=== PATIENT | female | born 1975 | race Caucasian/White ===

== ENCOUNTER → 2020-07-13 12:05 | Outpatient (CLI) | payer BC, SELFPAY ==
--- NOTE | 2020-07-13 12:11 | RAD_ITS ---
STUDY: X-RAY - THORACIC SPINE REASON FOR EXAM: Female, 44 years old. BACK PAIN TECHNIQUE: 2 view(s) of the thoracic spine were obtained. COMPARISON: None. FINDINGS: Normal kyphosis of the thoracic spine. There is no substantial scoliosis. Normal thoracic vertebrae and endplates. Normal disc space heights. The soft tissue structures are unremarkable. RAD/Thoracic Spine 2 Views IMPRESSION: Normal x-ray examination of the thoracic spine. Electronically Signed: Jay Stone MD at 6:38 EDT Tel , Service support ,
--- NOTE | 2020-07-13 12:11 | RAD_ITS ---
STUDY: X-RAY - LUMBAR SPINE REASON FOR EXAM: Female, 44 years old. BACK PAIN TECHNIQUE: 2 view(s) of the lumbar spine were obtained. COMPARISON: None FINDINGS: Normal lumbar lordosis. Mild dextroscoliosis centered at L4. There is a normal alignment of the vertebrae. There is multilevel endplate spondylosis of the lumbar vertebrae. There is multi-level degenerative disc disease with multi-level disc space narrowing. The soft tissue structures are unremarkable. RAD/Lumbar Spine 2 or 3 Views IMPRESSION: Mild dextroscoliosis with diffuse degenerative disc disease. Electronically Signed: Jay Stone MD at 8:39 EDT Tel , Service support ,
--- NOTE | 2020-07-13 12:15 | RAD_ITS ---
STUDY: X-RAY - CERVICAL SPINE REASON FOR EXAM: Female, 44 years old. BACK PAIN TECHNIQUE: 3 view(s) of the cervical spine were obtained. COMPARISON: None FINDINGS: Normal anterior atlantoaxial articulation. Normal odontoid process. There is straightening of the normal cervical lordosis. Normal vertebral bodies and endplates. Normal disc space heights. Normal visualized intervertebral neuroforamina. The soft tissue structures are unremarkable. RAD/Cerv Spine 2 or 3 Views IMPRESSION: There is straightening of the normal cervical lordosis. Electronically Signed: Umesh Ji MD at 15:33 EDT , Service support ,
== END ==
PROVIDERS: Referring Provider Anesthesiology Pain Medicine; Visit Provider Anesthesiology Pain Medicine
DX: M54.9 Dorsalgia, unspecified (principal)
CPT/HCPCS: 72040; 72070; 72100

== ENCOUNTER 2021-04-17 13:25 | Outpatient (CLI) | payer BC, SELFPAY ==
[2021-04-17 14:31] LABS: Amphetamine Urine VISTA NEGATIVE (<1000 ng/mL); Barbiturate Urine VISTA NEGATIVE (< 200 ng/mL); Benzodiazepine Urine VISTA NEGATIVE (< 200 ng/mL); Cocaine Urine VISTA NEGATIVE (< 300 ng/mL); Ecstacy Urine VISTA NEGATIVE (< 500 ng/mL); Methadone Urine VISTA NEGATIVE (< 300 ng/mL); PCP Urine VISTA NEGATIVE (< 25 ng/mL); THC Urine VISTA NEGATIVE (< 50 ng/mL); Vista UDS pH Range 5
== END 2021-04-17 23:59 | disposition short-term general hospital (02) ==
LOC: LAB 13:30
PROVIDERS: PCP Family Medicine; Referring Provider Anesthesiology Pain Medicine; Visit Provider Anesthesiology Pain Medicine
DX: F11.20 Opioid dependence, uncomplicated (principal)
CPT/HCPCS: 80307

== ENCOUNTER 2021-10-03 10:42 | Emergency (ER) | payer BC, SELFPAY ==
[2021-10-03 10:43] VITALS: BP 167/65; PULSE 97; RESP 22; TEMP 36.1; O2SAT 96; BMI 25.1
--- NOTE | 2021-10-03 11:00 | EKG12_ITS ---
Test Reason : Blood Pressure : / mmHG Vent. Rate : 088 BPM Atrial Rate : 088 BPM P-R Int : 122 ms QRS Dur : 086 ms QT Int : 366 ms P-R-T Axes : 053 064 064 degrees QTc Int : 442 ms Normal sinus rhythm Normal ECG Confirmed by FOX RUSSO, AUSTYN ([id number]), telegraph editor ZANA LLAMAS ([id number]) on 10/05/2021 9:31:03 AM Referred By: Confirmed By:AUSTYN BRAXTON MD
--- NOTE | 2021-10-03 11:00 | RAD_ITS ---
STUDY: X-RAY - LEFT FOOT CLINICAL: Female, 45 years old. Injury TECHNIQUE: 3 view(s) of the foot. COMPARISON: None. FINDINGS: There is an enthesophyte involving the posterior superior calcaneus at the site of insertion of the Achilles tendon. Normal visualized subtalar, talonavicular, calcaneocuboid, tarsal and tarsometatarsal articulations. Normal metatarsi. Normal metatarsophalangeal joint of the great toe. Normal tibial and fibular sesamoid bones. Normal interphalangeal joint of the great toe. Normal phalanges of the great toe. Normal second through fifth metatarsophalangeal joints. Normal interphalangeal joints and phalanges of the lesser toes. The soft tissue structures are unremarkable. RAD/Foot min 3 Views IMPRESSION: No acute abnormality is seen. Electronically Signed: Umesh Ji MD at 12:12 EDT ,
--- NOTE | 2021-10-03 11:01 | EX.ED.DYSGE1 ---
HPI History of Present Illness Chief Complaint: Suicidal Informant: patient Narrative Narrative: 45-year-old female presenting to the emergency department stating that she is suicidal. Patient states that she has had a long struggle raising her 17-year-old son. She states that she has been arguing with her . She states that she feels like her mind is broken because she asked him about events that he says did not happen. She states that she is written letters to her family saying that she is sorry. She started to cut her left leg recently which she states that she has not done in the past. She is in pain management for chronic low back pain. She denies any changes in medications. [facility] Medical History Connective tissue disease Diabetes Hypertension Home Medications atorvastatin 10 mg tablet 1 tablet PO DAILY 01/28/21 [History Last Taken Unknown] buprenorphine 10 mcg/hour weekly transdermal patch 1 patch transdermal 01/28/21 [History Last Taken Unknown] cholecalciferol (vitamin D3) 125 mcg (5,000 unit) capsule 125 mcg PO DAILY 01/28/21 [History Last Taken Unknown] gabapentin 300 mg capsule 300 mg PO TID 01/28/21 [History Last Taken Unknown] hydrocodone-acetaminophen 5-325mg 5mg-325mg 1 ea PO BID 01/28/21 [History Last Taken Unknown] lisinopril 20 mg tablet 1 ea PO DAILY 01/28/21 [History Last Taken Unknown] metaxalone 800 mg tablet 1 tablet PO TID 01/28/21 [History Last Taken Unknown] metformin 1,000 mg tablet 1 ea PO BID 01/28/21 [History Last Taken Unknown] Allergy/AdvReac Type Severity Reaction Status Date / Time meperidine [From Demerol] Allergy hives Verified 10/03/21 10:43 Penicillins Allergy vomit Verified 10/03/21 10:43 Surgical History H/O foot surgery H/O: H/O: hysterectomy Social History household members: family Smoking Status: Current every day smoker tobacco type: cigarettes ROS ROS ED Constitutional Constitutional ED: Denies chills, fever(s) or weight loss Eyes Eyes: Denies change in vision or diplopia ENT ENT ED: Denies ear pain, rhinorrhea or sore throat Cardiovascular Cardiovascular: Denies chest pain, orthopnea, palpitations or racing heartbeat Respiratory/Chest Respiratory/Chest: Denies cough, dyspnea or orthopnea Gastrointestinal Gastrointestinal: Denies abdominal pain, diarrhea, nausea or vomiting Genitourinary Genitourinary ED: Denies dysuria, hematuria or urinary frequency Musculoskeletal Musculoskeletal: Reports other Details: Left foot injury from fall ; Denies arthralgias or myalgias Integumentary Denies abscess or rash Neurologic Neurologic: Denies headache(s) or weakness Psychiatric Psychiatric: Reports anxiety, depression, suicidal ideation and suicidal thoughts Endocrine Endocrinology: Denies polydipsia, polyphagia or polyuria Allergic/Immunologic Allergic/Immunologic ED: Denies mouth swelling, tongue swelling or urticaria EXAM Physical Exam Const Vital Signs: 10/03/21 10:43 Temperature 96.9 F L Temperature Source Temporal Pulse Rate 97 Respiratory Rate 22 H Blood Pressure 167/65 H Blood Pressure Mean 99 Pulse Ox 96 Oxygen Delivery Method Room Air Positive well nourished and well developed General Appearance ED: well developed HEENT Reports normocephalic, head/scalp atraumatic and moist mucous membranes Eyes PERRL and EOMs intact bilaterally Neck no lymphadenopathy, supple and no JVD Resp normal respiratory effort and clear to auscultation bilaterally Cardio regular rate, regular rhythm and no murmurs GI normal to inspection, nondistended, normoactive bowel sounds and non-tender Palpation: soft Back/Spine no CVA tenderness and normal ROM Extremity Extremity Narrative: The third toe on the left foot shows diffuse ecchymosis and tenderness General Extremety ED: Negative for edema General Extremity: Negative for edema Neuro oriented x3 and CN's II-XII intact bilaterally Sensorium / Orientation: alert Motor Exam: strength 5/5 throughout Psych Psych Narrative: Patient makes little eye contact. She she is continuously tearful. She admits to suicidal thoughts. She views suicide as a option. Mood & Affect: depressed and tearful Skin no rashes or lesions noted and no wounds MDM MDM MDM Narrative Medical decision making narrative: My interpretation of the plain films of the left foot is no obvious fracture. Psychiatric screening labs were obtained and negative. COVID is negative and toxicology work-up is negative. Patient was evaluated by social work and they are in agreement that the patient would benefit from inpatient stabilization. I have filled out a pink slip and we will await placement. Lab Data Attestation: I reviewed the patient's lab results. Labs: Laboratory Results - last 24 hr 10/03/21 10/03/21 10/03/21 11:17 11:17 11:17 WBC 12.2 H RBC 4.64 Hgb 14.6 Hct 42.2 MCV 90.9 MCH 31.5 MCHC 34.6 RDW Std Deviation 42.9 RDW Coeff of Jamilah 13.1 Plt Count 384 MPV 9.9 Immature Gran % (Auto) 0.500 Neut % (Auto) 57.9 Lymph % (Auto) 33.6 [place] % (Auto) 6.7 Eos % (Auto) 0.6 Baso % (Auto) 0.7 Absolute Neuts (auto) 7.1 Absolute Lymphs (auto) 4.08 Nucleated RBC % 0 Sodium 133 L Potassium 3.5 Chloride 98 Carbon Dioxide 26.0 Anion Gap 9 BUN 4 L Creatinine 0.75 Estim Creat Clear Calc 97.95 Est GFR (MDRD) Af Amer 106 Est GFR (MDRD) Non-Af 88 BUN/Creatinine Ratio 5.3 L Glucose 146 H Calcium 9.5 Total Bilirubin 0.30 AST 12 L ALT 14 Alkaline Phosphatase 71 Total Protein 7.9 Albumin 3.9 Globulin 4.0 Albumin/Globulin Ratio 1.0 TSH 1.69 Urine Opiates Screen Urine Methadone Screen Ur Barbiturates Screen Ur Phencyclidine Scrn Ur Amphetamines Screen MDMA (Ecstasy) Screen U Benzodiazepines Scrn Urine Cocaine Screen U Cannabinoids Screen Ur Drug Screen Comment Ethyl Alcohol < 3.0 10/03/21 11:21 WBC RBC Hgb Hct MCV MCH MCHC RDW Std Deviation RDW Coeff of Jamilah Plt Count MPV Immature Gran % (Auto) Neut % (Auto) Lymph % (Auto) [place] % (Auto) Eos % (Auto) Baso % (Auto) Absolute Neuts (auto) Absolute Lymphs (auto) Nucleated RBC % Sodium Potassium Chloride Carbon Dioxide Anion Gap BUN Creatinine Estim Creat Clear Calc Est GFR (MDRD) Af Amer Est GFR (MDRD) Non-Af BUN/Creatinine Ratio Glucose Calcium Total Bilirubin AST ALT Alkaline Phosphatase Total Protein Albumin Globulin Albumin/Globulin Ratio TSH Urine Opiates Screen POSITIVE H Urine Methadone Screen NEGATIVE Ur Barbiturates Screen NEGATIVE Ur Phencyclidine Scrn NEGATIVE Ur Amphetamines Screen NEGATIVE MDMA (Ecstasy) Screen NEGATIVE U Benzodiazepines Scrn NEGATIVE Urine Cocaine Screen NEGATIVE U Cannabinoids Screen NEGATIVE Ur Drug Screen Comment Ethyl Alcohol Radiography Diagnostic Testing: Clinical Impression(s) from Imaging Studies Foot X-Ray 10/03/21 11:00 IMPRESSION: No acute abnormality is seen. Electronically Signed: Umesh Ji MD at 12:12 EDT , EKG Initial EKG: Comments: Normal sinus rhythm with a ventricular rate of 88 bpm. Discharge Plan Triage Chief Complaint: Suicidal ED Provider: Jan Sterling Dx/Rx/DC Orders Clinical Impression: Depression with suicidal ideation Prescriptions: No Action buprenorphine 10 mcg/hour patch weekly 1 patch transdermal hydrocodone-acetaminophen 5-325 mg tablet 1 ea PO BID metformin 1,000 mg tablet 1 ea PO BID metaxalone 800 mg tablet 1 tablet PO TID gabapentin 300 mg capsule 300 mg PO TID lisinopril 20 mg tablet 1 ea PO DAILY atorvastatin 10 mg tablet 1 tablet PO DAILY cholecalciferol (vitamin D3) 125 mcg (5,000 unit) capsule 125 mcg PO DAILY Primary Care Provider: Dileep Jacobsen Referrals: Dileep Jacobsen MD [Primary Care Provider] - Disposition Disposition: Psychiatric Hospital or Unit
[2021-10-03 11:26] LABS: Absolute Lymphocyte Count 4.08 X10^3/uL (0.83-4.51); Absolute Neutrophil Count 7.1 X10^3/uL (2.0-7.7); Basophil# 0.08 X10^3/uL; Basophil% 0.7 % (0-1); Eosinophil# 0.07 X10^3/uL; Eosinophils% 0.6 % (0-5); Hematocrit 42.2 % (37-47); Hemoglobin 14.6 g/dL (12.0-15.0); Lymphocyte # 4.08 X10^3/ul (0.83-4.51); Lymphocyte % 33.6 % (19-41); Mean Corp Hgb Conc 34.6 g/dL (32-36); Mean Corpuscular Hgb 31.5 pg (27.0-32.0); Mean Corpuscular Volume 90.9 fL (81-99); Mean Platelet Vol. 9.9 fl (6.2-12.0); Monocyte# 0.82 X10^3/uL; Monocyte% 6.7 % (0-10); NRBC Flagged by Analyzer 0 % (0-5); Neutrophil # 7.05 X10^3/uL (2.7-7.7); Neutrophil % 57.9 % (47-70); Platelet Count 384 K/mm3 (150-450); RBC Distribution Width CV 13.1 % (11.6-14.6); RBC Distribution Width SD 42.9 fl (35.1-43.9); Red Blood Count 4.64 M/mm3 (4.2-5.4); White Blood Count 12.2 K/mm3 (4.4-11.0)
[2021-10-03 11:42] LABS: Amphetamine Urine VISTA NEGATIVE (<1000 ng/mL); Barbiturate Urine VISTA NEGATIVE (< 200 ng/mL); Benzodiazepine Urine VISTA NEGATIVE (< 200 ng/mL); Cocaine Urine VISTA NEGATIVE (< 300 ng/mL); Ecstacy Urine VISTA NEGATIVE (< 500 ng/mL); Methadone Urine VISTA NEGATIVE (< 300 ng/mL); PCP Urine VISTA NEGATIVE (< 25 ng/mL); THC Urine VISTA NEGATIVE (< 50 ng/mL); Vista UDS pH Range 4
[2021-10-03 11:48] LABS: AST(SGOT) 12 U/L (15-37); Alanine Aminotransfer ALT/SGPT 14 U/L (13-56); Albumin, Serum 3.9 g/dL (3.2-5.0); Alkaline Phosphatase 71 U/L (45-117); Anion Gap 9 (5-15); BUN 4 mg/dL (7-18); BUN/Creat Ratio 5.3 RATIO (10-20); Calcium,Total 9.5 mg/dL (8.5-10.1); Chloride 98 mmol/L (98-107); Creatinine, Serum 0.75 mg/dL (0.55-1.02); EST Glomerular Filtration Rate 88 mL/min (>60); Est Glom Filt Rate - Afr Amer 106 mL/min (>60); Estimated Creatinine Clearance 97.95 ml/min; Glucose 146 mg/dL (74-106); Potassium 3.5 mmol/L (3.5-5.1); Protein, Total 7.9 g/dL (6.4-8.2); Sodium Level 133 mmol/L (136-145); Thyroid Stim Hormone (TSH) 1.69 uIU/mL (0.358-3.74)
[2021-10-03 12:11] LABS: Alcohol, Blood (Medical)-Serum < 3.0 mg/dL
[2021-10-03 16:32] VITALS: BP 105/70; PULSE 81; RESP 18; O2SAT 98
[2021-10-03] MEDS: HYDROcodone Bitartrate/Apap 5/325 Tablet PO ×2 (17:00→21:29)
[2021-10-03] MEDS: Gabapentin 300 MG Capsule PO ×2 (17:01→21:29)
[2021-10-03] MEDS: Metaxalone 800 MG Tablet PO ×2 (17:01→21:29)
[2021-10-03 17:37] VITALS: RESP 16
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
--- NOTE | 2021-10-03 19:43 | CM.ED ---
Social Work Note SW faxed referral to [facility]. Of note, pt did tell this worker that her son Aguilar is currently with friends and friends mother. Belen Hale AIR CONDITIONING SUPERVISOR, FORMS EXAMINER
[2021-10-03 21:00] VITALS: BP 106/73; PULSE 68; RESP 18; O2SAT 96
[2021-10-03] MEDS: Atorvastatin Calcium 10 MG Tablet PO (21:29)
[2021-10-03] MEDS: metFORMIN HCl 1,000 MG Tablet 1000 MG PO (21:29)
[2021-10-03] MEDS: Pantoprazole Sodium 40 MG Tablet PO (21:29)
--- NOTE | 2021-10-03 21:47 | CM.ED ---
Social Work Note SW placed a call to [facility] regarding referral. [facility] states they are behind on referrals, will call when they review referral. Belen Hale HEAD OF QUALITY, PERSONAL PROPERTY ASSESSOR
--- NOTE | 2021-10-03 23:18 | CM.ED ---
Addendum entered by Belen Hale 10/03/21 23:29: Correction: Pt is going to Adult Behavioral Unit. Original Note: Social Work Note SW received a call from [facility] and pt has been accepted. Accepting physician is Rebecca Hernandez. Pt is going to Adult Behavior Unit. RN to RN is [phone]. SW updated RN and supervisor fiberglass boat assembly. SW in to speak with pt and updated pt. SW placed a call to [facility] and updated staff that pt has been accepted to [facility]. Belen Hale MARINE ENGINE MECHANIC, WEB PRESS JOGGER
--- NOTE | 2021-10-03 23:20 | NURSING ---
PHYSIC[facility]ANS ETA 830/9 AM
[2021-10-04 01:00] VITALS: RESP 14
--- NOTE | 2021-10-04 01:42 | ED.RN ---
ASSUMED CARE OF THIS PT AT [id number]
[2021-10-04 02:00] VITALS: RESP 16
[2021-10-04 02:53] VITALS: BP 105/77; PULSE 60; O2SAT 97
[2021-10-04 06:25] VITALS: BP 94/74; PULSE 61; RESP 16; TEMP 37; O2SAT 96
--- NOTE | 2021-10-04 07:10 | ED.RN ---
ATTEMPTED TO CALL REPORT. NO ANSWER. WENT TO AUTOMATED VM.
--- NOTE | 2021-10-04 07:26 | NURSING ---
0719 CALLED PHYSICANS, TALKED TO TIFFANIE. CREW WILL BE RETURNING FROM ANOTHER FACILITY
[2021-10-04 10:08] VITALS: BP 111/62; PULSE 74; RESP 16; TEMP 36.1; O2SAT 97
[2021-10-04] MEDS: HYDROcodone Bitartrate/Apap 5/325 Tablet PO (10:42)
[2021-10-04] MEDS: Metaxalone 800 MG Tablet PO (10:42)
[2021-10-04] MEDS: Lisinopril 20 MG Tablet PO (10:42)
[2021-10-04] MEDS: metFORMIN HCl 1,000 MG Tablet 1000 MG PO (10:42)
[2021-10-04] MEDS: Cholecalciferol (VIT D3) 25 MCG TABLET (1,000 UNITS) 50 MCG PO (10:43)
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
--- NOTE | 2021-10-15 10:46 | CM.ED ---
Social Work Note SW received letter from [facility] stating the referral was not accepted for assessment/investigation. Belen Hale ORGAN PIPE VOICER, GEOSPATIAL EXTRACTOR ANALYSIS
== END 2021-10-04 10:55 ==
LOC: ED 11:26
PROVIDERS: Emergency Provider Emergency Medicine; PCP Family Medicine; Visit Provider Emergency Medicine
DX: F32.A Depression, unspecified (principal); E11.9 Type 2 diabetes mellitus without complications; R45.851 Suicidal ideations; I10 Essential (primary) hypertension; F17.210 Nicotine dependence, cigarettes, uncomplicated; Z79.899 Other long term (current) drug therapy; Z79.84 Long term (current) use of oral hypoglycemic drugs
CPT/HCPCS: 36415; 73630; 80053; 80307; 82077; 84443; 85025; 87811; 93005; 99285

== ENCOUNTER → 2021-12-17 | Outpatient (CLI) | payer BC, SELFPAY ==
[2021-12-17 13:52] LABS: BUP Internal Control LINE = VALID (VALID); Buprenorphine Drug Screen Negative (<10 ng/mL)
[2021-12-17 13:55] LABS: Amphetamine Urine VISTA NEGATIVE (<1000 ng/mL); Barbiturate Urine VISTA NEGATIVE (< 200 ng/mL); Benzodiazepine Urine VISTA NEGATIVE (< 200 ng/mL); Cocaine Urine VISTA NEGATIVE (< 300 ng/mL); Ecstacy Urine VISTA NEGATIVE (< 500 ng/mL); Methadone Urine VISTA NEGATIVE (< 300 ng/mL); PCP Urine VISTA NEGATIVE (< 25 ng/mL); THC Urine VISTA NEGATIVE (< 50 ng/mL); Vista UDS pH Range 5
== END | disposition home or self-care (01) ==
LOC: LAB 12:18
PROVIDERS: PCP Family Medicine; Referring Provider Anesthesiology Pain Medicine; Visit Provider Anesthesiology Pain Medicine
DX: F11.20 Opioid dependence, uncomplicated (principal)
CPT/HCPCS: 80307

== ENCOUNTER → 2023-11-09 | Outpatient (CLI) | payer BC, SELFPAY ==
[2023-11-09 10:24] LABS: BUP Internal Control LINE = VALID (VALID); Buprenorphine Drug Screen Negative (<10 ng/mL)
[2023-11-09 10:44] LABS: Amphetamine Urine VISTA NEGATIVE (<1000 ng/mL); Barbiturate Urine VISTA NEGATIVE (< 200 ng/mL); Benzodiazepine Urine VISTA NEGATIVE (< 200 ng/mL); Cocaine Urine VISTA NEGATIVE (< 300 ng/mL); Ecstacy Urine VISTA NEGATIVE (< 500 ng/mL); Methadone Urine VISTA NEGATIVE (< 300 ng/mL); PCP Urine VISTA NEGATIVE (< 25 ng/mL); THC Urine VISTA NEGATIVE (< 50 ng/mL); Vista UDS pH Range 5
== END | disposition home or self-care (01) ==
PROVIDERS: PCP Family Medicine; Referring Provider Anesthesiology Pain Medicine; Visit Provider Anesthesiology Pain Medicine
DX: F11.20 Opioid dependence, uncomplicated (principal)
CPT/HCPCS: 36415; 80307

== ENCOUNTER → 2024-04-25 | Outpatient (CLI) | payer BC, SELFPAY ==
--- NOTE | 2024-04-25 07:24 | MRI_ITS ---
STUDY: MRI LUMBAR SPINE WITHOUT CONTRAST REASON FOR EXAM: Female, 48 years old. lumbar radiculopathy TECHNIQUE: Standardized fat and water weighted pulse sequences were obtained in the sagittal and axial planes. COMPARISON: Lumbar spine x-rays March 29, 2024 FINDINGS: T12-L1: Normal endplates. Normal disc height, hydration and morphology. Normal bilateral facet joints. Normal central canal and bilateral lateral recesses. Normal bilateral intervertebral neural foramina. Normal lumbar lordosis. There is no substantial scoliosis. Normal conus medullaris that terminates at T12-L1 L1-2: Normal endplates. Normal disc height, hydration and morphology. Normal bilateral facet joints. Normal central canal and bilateral lateral recesses. Normal bilateral intervertebral neural foramina. L2-3: Normal endplates. Normal disc height, hydration and morphology. Normal bilateral facet joints. Normal central canal and bilateral lateral recesses. Normal bilateral intervertebral neural foramina. L3-4: Normal endplates. Normal disc height, desiccation and tiny left foraminal disc protrusion... Normal bilateral facet joints. Normal central canal and bilateral lateral recesses. Mild left neural foraminal encroachment.. L4-5: Narrowed disc space with desiccation of the disc and small right paracentral disc extrusion with inferior migration of disc fragment as well as a small left foraminal disc protrusion... Normal bilateral facet joints. Mild narrowing of the central canal. Normal bilateral lateral recesses. Moderate left neural foraminal stenosis. L5-S1: Normal endplates. Normal disc height, desiccation and moderate annular bulge with moderate size broad-based central disc extrusion with inferior migration of disc fragment. Facet arthropathy more pronounced on the right. Mild to moderate narrowing of the central canal. Mild to moderate bilateral lateral recess stenosis slightly more pronounced on the right. Severe right neural foraminal stenosis and moderate narrowing on the left. Normal visualized sacral ala. Normal visualized paraspinous soft tissue structures. No significant change since prior exam given inherent differences in imaging modalities MRI/Spine Lumbar (Routine) IMPRESSION: No evidence for acute fracture or other significant bony pathology Spondylosis and multilevel spinal stenosis secondary to disc disease and bony hypertrophy most severe at L5-S1. Findings as above Electronically Signed: Dileep Church MD at 20:37 EST Reading Location ID and State: [address] [place] [address] Tel , Service support ,
== END | disposition home or self-care (01) ==
PROVIDERS: PCP Family Medicine; Referring Provider Orthopaedic Surgery Orthopaedic Surgery of the Spine; Visit Provider Orthopaedic Surgery Orthopaedic Surgery of the Spine
DX: M54.16 Radiculopathy, lumbar region (principal)
CPT/HCPCS: 72148

== ENCOUNTER 2024-06-20 10:42 | Observation (INO) | payer BC, SELFPAY ==
[2024-06-07 07:18] LABS: Absolute Lymphocyte Count 3.35 X10^3/uL (0.83-4.51); Absolute Neutrophil Count 4.2 X10^3/uL (2.0-7.7); Basophil# 0.09 X10^3/uL; Eosinophil# 0.22 X10^3/uL; Eosinophils% 2.6 % (0-5); Hematocrit 39.5 % (37-47); Hemoglobin 12.7 g/dL (12.0-15.0); Lymphocyte # 3.35 X10^3/ul (0.83-4.51); Lymphocyte % 38.9 % (19-41); Mean Corp Hgb Conc 32.2 g/dL (32-36); Mean Corpuscular Hgb 26.4 pg (27.0-32.0); Mean Corpuscular Volume 82.1 fL (81-99); Monocyte# 0.69 X10^3/uL; NRBC Flagged by Analyzer 0 % (0-5); Neutrophil # 4.24 X10^3/uL (2.7-7.7); Neutrophil % 49.2 % (47-70); Platelet Count 368 K/mm3 (150-450); RBC Distribution Width CV 13.3 % (11.6-14.6); RBC Distribution Width SD 39.7 fl (35.1-43.9); Red Blood Count 4.81 M/mm3 (4.2-5.4); White Blood Count 8.6 K/mm3 (4.4-11.0)
[2024-06-07 08:14] LABS: Partial Thromboplast Time 26.1 Seconds (24.1-36.2)
[2024-06-07 08:30] LABS: HIV Nonreactive (Nonreactive); Hepatitis B Surface Antibody Nonreactive; Hepatitis C Antibody Nonreactive (Nonreactive); Magnesium 1.9 mg/dL (1.5-2.2)
[2024-06-07 08:45] LABS: Anion Gap 16 (5-15); BUN 7 mg/dL (4-19); BUN/Creat Ratio 7.4 RATIO (10-20); Calcium,Total 9.4 mg/dL (7.6-11.0); Carbon Dioxide 20.7 mmol/L (21.0-32.0); Chloride 98 mmol/L (98-108); Creatinine, Serum 0.89 mg/dL (0.70-1.20); EST Glomerular Filtration Rate 79 (>60); Glucose 145 mg/dL (70-99); Potassium 4.2 mmol/L (3.3-5.1); Sodium Level 134 mmol/L (133-145)
[2024-06-07 08:52] LABS: International Normalized Ratio 1.1; Prothrombin Time (Protime)PT. 13.9 SECONDS (11.7-14.9)
[2024-06-07 09:07] LABS: AST(SGOT) 41 U/L (<=31); Alanine Aminotransfer ALT/SGPT 24 U/L (<=34); Albumin, Serum 4.2 g/dL (3.5-5.0); Alkaline Phosphatase 82 U/L (35-104); Bilirubin, Direct 0.19 mg/dL (0.00-0.30); Globulin 3.4 g/dL (2.2-4.2); Protein, Total 7.6 g/dL (5.9-8.4); Total Bilirubin 0.39 mg/dL (0.00-1.30)
[2024-06-08 01:17] LABS: Hemoglobin A1c 6.9 % (<=5.6)
[2024-06-08 05:07] LABS: Hepatitis A AB, Total Negative (Negative)
[2024-06-20] VITALS (17 sets, daily range): BP systolic 102–128; BP diastolic 61–81; PULSE 70–88; RESP 16–18; TEMP 36.1–36.8; O2SAT 93–100; BMI 30.7; BMI 31.9
[2024-06-20] MEDS: Acetaminophen 500 MG Tablet 1000 MG PO ×3 (06:09→21:16)
[2024-06-20 06:12] LABS: Bedside Glucose 328 mg/dL (74-106)
[2024-06-20] MEDS: 0.9% Normal Saline (1000mL) 1,000 ML 15 ML IV (06:14)
[2024-06-20] MEDS: Magnesium 2 GM for ERAS IV (06:22)
[2024-06-20] MEDS: Insulin Lispro 100 UNIT/ML INSULN.PEN SC (06:41)
--- NOTE | 2024-06-20 06:42 | PRE.ANES_ITS ---
ASA Classification* ASA Classification ASA Classification: 3 Assessment & Plan Anesthesia* Anesthesia Assessment Anesthesia Assessment: Discussed sedation and/or anesthesia options, risks, benefits, and alternatives with patient/parents/legal guardian/POA. Questions invited. The patient/parents/legal guardian/POA seems to understand and agrees to proceed with anesthesia plan. Reviewed the physical assessment, medical history, allergy history and patient home medications list prior to surgery/procedure/anesthetic and documented any changes. Performed airway and anesthesia risk assessments. Anesthesia Type Anesthesia Type: General History Source History Obtained from:: Patient and Chart Anesthesia Focused Assessment* Temperature: 96.9 F Pulse Rate: 75 Blood Pressure: 106/76 Respiratory Rate: 16 Pulse Ox: 100 Oxygen Delivery Method: Room Air Airway Assessment Mouth opens: >3 cm Mallampati Score: II Teeth Condition: Dentures (Upper dentures are out.) and Missing (Patient is missing couple teeth on the bottom. Rest are tight.) Neck Range of motion (ROM): Limited ROM (Slight decrease in extension) Focused Labs Anesthesia Preop lab: CBC WBC 8.6 K/mm3 (4.4-11.0) 06/07/24 06:54 06/07/24 RBC 4.81 M/mm3 (4.2-5.4) 06/07/24 06:54 06/07/24 Hgb 12.7 g/dL (12.0-15.0) 06/07/24 06:54 06/07/24 Hct 39.5 % (37-47) 06/07/24 06:54 06/07/24 Plt Count 368 K/mm3 (150-450) 06/07/24 06:54 06/07/24 CHEMISTRY Potassium 4.2 mmol/L (3.3-5.1) 06/07/24 06:54 06/07/24 Sodium 134 mmol/L (133-145) 06/07/24 06:54 06/07/24 Magnesium 1.9 mg/dL (1.5-2.2) 06/07/24 06:54 06/07/24 BUN 7 mg/dL (4-19) 06/07/24 06:54 06/07/24 Creatinine 0.89 mg/dL (0.70-1.20) 06/07/24 06:54 06/07/24 Glucose 145 mg/dL (70-99) H 06/07/24 06:54 06/07/24 POC Glucose 328 mg/dL (74-106) H 06/20/24 05:53 06/20/24 TSH 2.750 uIU/mL (0.300-4.200) 06/07/24 06:54 0304/23 COAG PT 13.9 SECONDS (11.7-14.9) 06/07/24 06:54 Pre-Assessment Diagnosis/Proposed Procedure Planned Operative Procedure(s): Minimally invasive Transforaminal Lumbar Interbody Fusion, L5-S1 Anesthesia History 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 When Was Last Pacemaker Check QUESTION #4 FULL TEXT: You/Your Family Experience fever (hyperthermia) with Anesthesia Last Oral Intake Last Oral intake: Last Oral Intake NPO since 03:30 06/20/24 06:05 Meds taken in AM with sips of Yes 06/20/24 06:05 water? 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 specialist Female Yes 06/06/24 14:50 HX of Motion Sickness No 06/06/24 14:50 HX of N/V After Surgery No 06/06/24 14:50 Non-Smoker Yes 06/06/24 14:50 Duration of Surgery greater Yes 06/06/24 14:50 than 60 minutes Number of Risk Factors 3 06/06/24 14:50 PONV Score Moderate Risk 06/06/24 14:50 Height & Weight Height & Weight: Anesthesia: Height & Weight Height 5 ft 9 in 06/20/24 06:05 Weight: 94.347 kg 06/20/24 06:05 Body Mass Index (BMI) 30.7 06/20/24 06:05 Respiratory Assessment Respiratory Assessment - residential lawn specialist: Respiratory Tract Infection Hx - residential lawn specialist Hx Respiratory Tract Infection No 06/06/24 14:50 STOP Sleep Apnea STOP Sleep Apnea - residential lawn specialist: STOP Sleep Apnea - residential lawn specialist Hx Hypertension No 06/06/24 14:50 Hx Sleep Apnea No 06/06/24 14:50 CPAP BIPAP Do you snore loudly (louder No 06/06/24 14:50 than talking or can be heard Do you often feel tired/ No 06/06/24 14:50 fatigued/ sleepy during daytime? Has anyone observed you stop No 06/06/24 14:50 breathing during sleep? STOP Results Negative 06/06/24 14:50 QUESTION #5 FULL TEXT : Do you snore loudly (louder than talking or can be heard through closed doors)? 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 Specify any problems Hx of Preganancy in last 3 No 06/06/24 14:50 Months Nurse Filling Out Transfusion VCHRISTIN 06/06/24 14:50 & Questions: Date: 06/06/24 06/06/24 14:50 Time: 14:51 06/06/24 14:50 Patient unable to answer at this time (ie. confused, unrespo /Reproduction History /Reproductive History - residential lawn specialist: /Reproductive Hx- residential lawn specialist Hx Now No 06/06/24 14:50 Gestational Age (in weeks): EDC: Hx Hx Para Hx Section SAB No 06/06/24 14:50 Active Medications Active Medications: Current Medications Generic Name Dose Route Start Last Admin Trade Name Freq PRN Reason Stop Dose Admin Acetaminophen 1,000 mg 06/20/24 07:30 06/20/24 06:09 Acetaminophen 500 Mg Tablet PO 06/20/24 07:31 1,000 mg X1 ONE Administration Clindamycin Phosphate 900 mg in 50 mls @ 75 mls/hr 06/20/24 07:30 Cleocin IV 06/20/24 08:09 PREOP ONE Tranexamic Acid 1,000 mg/ 110 mls @ 440 mls/hr 06/20/24 07:30 Sodium Chloride IV 06/20/24 07:44 X1 ONE Tranexamic Acid 1,000 mg/ 110 mls @ 440 mls/hr 06/20/24 08:30 Sodium Chloride IV 06/20/24 08:44 X1 ONE Magnesium Sulfate 2 gm/ 104 mls @ 208 mls/hr 06/20/24 07:30 06/20/24 06:22 Dextrose IV 06/20/24 07:59 208 mls/hr X1 ONE Administration Sodium Chloride 1,000 mls @ 15 mls/hr 06/20/24 05:45 06/20/24 06:14 IV 15 mls/hr .Q48H LENARD Administration Insulin Human Lispro 1 - 6 unit 06/20/24 07:30 Insulin Lispro 100 Unit/Ml Insuln.Pen SC 06/20/24 13:30 Q4H PRN PRN BG>/= 180, SEE PROTOCOL Protocol PFSH Medical History Wears dentures Wears glasses Anxiety Thyroid disease Arthritis History of renal disease Easy bruising Excessive bleeding Back pain Injury of back History of IBS Gastric reflux Former smoker Asthma History of pain when walking Connective tissue disease Diabetes Hypertension Home Medications ?Medication ?Instructions ?Recorded ?Last Taken ?Type atorvastatin 10 mg tablet 1 tablet PO DAILY 01/28/21 0 06/19/24 History buprenorphine 10 mcg/hour weekly 1 patch transdermal Q WEEK 01/28/21 06/13/24 History transdermal patch cholecalciferol (vitamin D3) 125 125 mcg PO DAILY 04/1906/19/24 History mcg (5,000 unit) capsule gabapentin 300 mg capsule 300 mg PO TID 01/28/2106/20 04:30 History lisinopril 20 mg tablet 10 mg PO DAILY 01/28/2105/29 History metformin 1,000 mg tablet 1,000 mg PO BID 01/28/21 History hydrocodone-acetaminophen 5-325mg 1 tab PO BID 2 06/19/24 History 5mg-325mg pantoprazole 40 mg tablet,delayed 40 tab PO DAILY 10/1806/20/24 04:30 History release baclofen 5 mg tablet 10 mg PO BID 11/28/22 04:30 History hydroxyzine pamoate 50 mg capsule 50 mg PO Q6H PRN anx iety 11/28/22 06/19/24 History levothyroxine 75 mcg tablet 50 mcg PO DAILY 11/28/22 0 06/20/24 04:30 History risperidone 0.5 mg tablet 0.5 mg PO BID 11/28/2206/19 History duloxetine 60 mg capsule,delayed 60 mg PO BID 06/06/24 06/19/24 History release glimepiride 1 mg tablet 3 mg PO DAILY 06/06/2406/19 History prazosin 2 mg capsule 2 mg PO QHS 06/06/24 5 History propranolol 60 mg capsule,24 60 mg PO DAILY 06/06/24 0 06/20/24 04:30 History hr,extended release tirzepatide 5 mg/0.5 mL 5 mg subcut .IM 06/06/2401/21 History subcutaneous pen injector (Mounjaro) Allergy/AdvReac Type Severity Reaction Status Date / Time hydromorphone (From Dilaudid) Allergy Mild agitation Verified 06/20/24 05:57 meperidine (From Demerol) Allergy hives Verified 06/20/24 05:57 Penicillins Allergy vomit Verified 06/20/24 05:57 Surgical History Hx of tubal ligation History of surgery on lower extremity H/O: hysterectomy H/O foot surgery H/O: Social History household members: family Smoking Status: Current every day smoker tobacco type: cigarettes Review of Systems (Anesthesia) ROS Narrative System reviewed and no additional complaints, except as documented.
--- NOTE | 2024-06-20 07:19 | HP.PCM_ITS ---
History and Physical Date of Admission: 06/20/24 MR#: [id number] Acct: [id number] Name: JANE QUIROZ Rep #: [id number] : 1975 Provider: Dr. Toño Joyner MD Age/Sex: 48/F Location: [facility] [place] Status: Signed Intake Vital Signs 04/27/2512:36 Height 5 ft 9 in Weight: 214 lb 6 oz BMI 31.6 Intake Visit Reasons: lumbar spine Chief Complaint: lumbar spine pain Allergies hydromorphone (From Dilaudid) Allergy (Mild, Verified 06/16/24 08:06) agitationmeperidine (From Demerol) Allergy (Verified 06/16/24 08:06) hivesPenicillins Allergy (Verified 06/16/24 08:06) vomit Medications ?Medication ?Instructions ?Recorded ?Confirmed ?Type atorvastatin 10 mg tablet 1 tablet PO DAILY 01/28/21 06/16/24 Hist ory buprenorphine 10 mcg/hour weekly 1 patch transdermal QWEEK 01/28/2106/16 History transdermal patch cholecalciferol (vitamin D3) 125 125 mcg PO DAILY 01/28/21 06/16/24 Histo ry mcg (5,000 unit) capsule gabapentin 300 mg capsule 300 mg PO TID 01/28/21 06/16/24 History lisinopril 20 mg tablet 10 mg PO DAILY 01/28/21 06/16/24 History metformin 1,000 mg tablet 1,000 mg PO BID 01/28/21 06/16/24 Histor y hydrocodone-acetaminophen 5-325mg 1 tab PO BID 10/03/21 06/16/24 History 5mg-325mg pantoprazole 40 mg tablet,delayed 40 tab PO DAILY 10/03/21 06/16/24 Histor y release baclofen 5 mg tablet 10 mg PO BID 11/28/22 06/16/24 History hydroxyzine pamoate 50 mg capsule 50 mg PO Q6H PRN anxiety 11/28/22 History levothyroxine 75 mcg tablet 50 mcg PO DAILY 11/28/22 06/16/24 Histor y risperidone 0.5 mg tablet 0.5 mg PO BID 11/28/22 06/16/24 History duloxetine 60 mg capsule,delayed 60 mg PO BID 06/06/24 06/16/24 History release glimepiride 1 mg tablet 3 mg PO DAILY 06/06/24 06/16/24 History prazosin 2 mg capsule 2 mg PO QHS 06/06/24 06/16/24 History propranolol 60 mg capsule,24 60 mg PO DAILY 06/06/24 06/16/24 History hr,extended release tirzepatide 5 mg/0.5 mL 5 mg subcut .IM 06/06/24 06/16/24 Histor y subcutaneous pen injector (Mraicruz) [facility] Medical History Wears dentures Wears glasses Anxiety Thyroid disease Arthritis History of renal disease Easy bruising Excessive bleeding Back pain Injury of back History of IBS Gastric reflux Former smoker Asthma History of pain when walking Connective tissue disease Diabetes Hypertension Surgical History Hx of tubal ligation History of surgery on lower extremity H/O: hysterectomy H/O foot surgery H/O: Social History household members: family Smoking Status: Current every day smoker tobacco type: cigarettes HPI lumbar spine Details: This documentation accurately reflects the service provided and the decisions made by me, Dr. Toño Joyner MD 06/16/24 0756. Part of today?s visit was documented by Rebecca MCDANIELS, acting as scribe. JANE QUIROZ is a 48 year old F here today for preop, lumbar spine, dos 06/20/24. 04/28/24: JANE QUIROZ is a 48 year old F here today for lumbar spine MRI review. Patient rates her pain a 9/10 today and is ambulating with a cane. She denies any changes to her pain since her last visit. She states the pain will get worse depending on what she is doing. Patient denies any injections in the past couple of months. Patient states when she was having injections they were causing more pain rather than giving her any relief. She has had a , tubal ligation, hysterectomy, and several other abdominal surgeries. She has seen Dr. Franco in the past who recommends that she be seen here. She is taking Avalon and a buprenorphine patch from Dr. Franco. Last a1c was done at the [facility], which is not available to us to view. 03/29/2024 visit: lumbar spine pain, she was previously seen by Dr. Garcia. She was referred to us by Dr. Franco due to an increase in pain. She uses a cane to help with her balance. She reports low back pain that extends into her BLE. She also reports numbness and tingling into her BLE. Says that from her hips down her anterior thigh to her ankle she feels a burning and tingling pain. Says her right leg is more numb than the left but the left is more painful. Walking increases her pain. She also experiences a burning sensation in her low back. She does receive injections with Dr. Franco and she states that they are no longer helpful. Last injection was a couple of months ago. She gets both neck and lumbar injections. She has done PT but reports it was not helpful. She denies previous surgery to her back. She did injure her back years ago when she fell through a ping chair while she was five months and she lost the due to the fall. Says that she will get numbness in her hands. History of diabetes. Says she gets pain between her shoulder blades. Ortho Exam General General: Yes no acute distress Neurologic: Yes alert and Yes oriented x3 Spine SPINE TESTING CERVICAL THORACIC LUMBAR Musculoskeletal Strength 0=absent - 5=normal Details: Neurological exam of the lower extremities shows 5x5 power. Normal sensations across all dermatomes. No hyperreflexia, diminished reflexes due to diabetes. Midline tenderness and left paraspinal tenderness. Dorita's negative. Coding Level of Care Code Off vis,est,level 4 Diagnoses Lumbar radiculopathy M54.16 Other intervertebral disc degeneration, lumbar region with discogenic back pain and lower extremity pain M51.362 Spinal stenosis of lumbar region with neurogenic claudication M48.062 Time Spent (min) 35 Assessment and Plan Assessment and Plan (1) Lumbar radiculopathy: Status: Acute (2) Other intervertebral disc degeneration, lumbar region with discogenic back pain and lower extremity pain: Status: Acute (3) Spinal stenosis of lumbar region with neurogenic claudication: Status: Acute Plan Again reviewed prior xrays which shows a multilevel disc height loss and a subtle scoliosis. Reviewed MRI from 04/25/24 which showed L5-S1 broad-based disc herniation more on the right paracentral foraminal regions, and L5-S1 mild to moderate narrowing of the central canal, mild to moderate bilateral lateral recess stenosis slightly more pronounced on the right and severe right neural foraminal stenosis and moderate narrowing on the left. There is severe disc height loss and disc degeneration. L4-5 and L3-4 also show mild disc degen eration. L4-5 shows tiny central disc herniation with inferior migration without significant stenosis. Explained imaging findings in detail. Patient developed significant L5-S1 disc degeneration with stenosis and bilateral lower extremity radiculopathy. Respiratory treatment options which include continued nonoperative treat measures versus surgery. At this time the patient feels that the lumbar back pain has been limiting her quality of life. Encouraged the patient to exhaust nonsurgical options. Discussed that due to her pain medication history her pain tolerance will be decreased and she will have increased pain after the surgery. Patient understands. Discussed surgical options. Due to severe disc degeneration and the fact that her back pain is worse than her leg pain, recommend L5-S1 decompression fusion in the form of transforaminal lumbar to body fusion. Explained the L5-S1 TLIF in detail. Explained risks and benefits of surgery. Risks include but are not limited to infection, bleeding, hematoma formation, need for further surgery, persistent pain, persistent numbness and weakness, nerve root injury, pseudoarthrosis, hardware failure, adjacent segment degeneration, DVT, pulm embolism, pneumonia, atelectasis, cardiopulmonary event. Patient understands and agrees to proceed with surgery. Consent was signed.
[2024-06-20] MEDS: TRANEXAMIC ACID 1,000 MG in 0.9% Normal Saline (100mL Bag) 100 ML 440 MG IV ×2 (07:42→10:17)
[2024-06-20] MEDS: Clindamycin 900 MG/50 ML BAG 75 MG IV ×3 (07:43→23:31)
--- NOTE | 2024-06-20 08:05 | RAD_ITS ---
EXAM: XR Lumbosacral Spine, 2 or 3 Views CLINICAL INDICATION: MINIMALLY INVASIVE TRANSFORAMINAL LUMBAR INTERBODY FUSION L5-S1 TECHNIQUE: Frontal and lateral views of the lumbar spine and sacrum. COMPARISON: No relevant prior studies available. FINDINGS: VERTEBRAE: Unremarkable. No acute fracture. Normal alignment. SACRUM/COCCYX: Unremarkable as visualized. No acute fracture. DISC SPACES: No acute findings. No significant narrowing. SOFT TISSUES: Unremarkable. OTHER FINDINGS: Fluoroscopic guidance was used intraoperatively. Total 14 images were obtained. Total radiation dose 76.35 mGy. Total fluoroscopy time 125.0 seconds. RAD/Lumbar Spine 2 or 3 Views IMPRESSION: Fluoroscopic guidance used intraoperatively. Please refer to operative note fo r further details. Reading Location: [facility]
[2024-06-20] MEDS: Ropivacaine 0.5% 30 ML Vial (10:24)
[2024-06-20 10:34] LABS: Bedside Glucose 132 mg/dL (74-106)
--- NOTE | 2024-06-20 10:43 | OP.PCM_ITS ---
Procedures Musculoskeletal 20xxx-29xxx: Other Procedure See Report Operative Report (Standard) Operative Information Date of Procedure: 06/20/24 Pre-Operative Diagnosis: L5-S1 disc degeneration, stenosis with neurogenic claudication, radiculopathy Post-Operative Diagnosis: Same Surgery/Procedure Performed: L5-S1 transforaminal lumbar interbody fusion plastic sheets finishing supervisor: Yes Truss Builder: Judie Sibley Tasks completed by lens assistant: Closing, Removing tissue, Implanting device, Hemostasis: Electrocautery and Retracting Type of Anesthesia: General RN Documented Start/Stop Times: Operation Date: 06/20/24 07:30 Case Time Into Pre-Op 06/20/24 05:34 Out of Pre-Op 06/20/24 07:37 Anesthesia Start 06/20/24 07:41 Into Room 06/20/24 07:41 Procedure Start 06/20/24 08:16 Procedure End 06/20/24 10:32 Procedure Start Time: 08:16 Procedure Stop Time: 10:32 Select all DRAINS/GRAFTS/IMPLANTS that apply: Graft Graft details: Autologous local bone graft, allograft cancellous chips, DBX and Implanted device Implanted device details: DePuy Xpac TLIF cage, Viper prime pedicle screw instrumentation Estimated Blood Loss: 40 cc Specimen collected: No Description of surgery: Preoperative diagnosis: L5-S1 disc degeneration, stenosis with neurogenic claudication, radiculopathy Postoperative diagnosis: Same Name of procedure: L5-S1 transforaminal lumbar interbody fusion (TLIF), minimally invasive right side approach, percutaneous pedicle screw instrumentation. . L5-S1 posterior spinal fusion and interbody fusion 92754 ? L5-S1 posterior pedicle screw instrumentation [id number] . L5-S1 insertion of cage [id number] . Local autograft . Cancellous allograft with DBX Attending Surgeon: Dr. Toño Joyner Estimated blood loss: 40 mL Anesthesia: GA Complications: None Implants: DePuy Synthes X-PAC TLIF cage, Viper prime screws Indications: Patient is a 48-year-old lady who has had a history of low back pain that radiates into right worse than left lower extremity. X-rays and MRI revealed L5-S1 disc degeneration with bilateral lateral recess and foraminal stenosis worse on the right. Patient was explained all options of treatment which included continued nonoperative treatment measures like rest physical therapy, epidural steroidal injections. After a prolonged period of of nonoperative treatment, patient elected to undergo surgical decompression & fusion since the symptoms severely affected her quality of life. All risks and benefits associated with the procedure were explained to the patient. The risks include but are not limited to infection, bleeding, injury to nerves and vessels, persistent paresthesia, persistent pain, dural tear, need for further procedures, adjacent segment degeneration, pseudoarthrosis, hardware failure, etc. Procedure: The patient was identified in the preoperative holding suite using unique patient identifiers. Skin was marked, consent was reviewed, and all questions were answered. The patient was then brought back to the operative room. A surgical timeout was performed to make sure correct procedure was being done on the correct patient and all operative room staff were on the same page. General endotracheal anesthesia was then given to the patient. Neuromonitoring leads were applied. The patient was then turned prone onto a Jose table. The back was prepped and draped in usual fashion. IV antibiotic was given as preoperative antibiotic. A final timeout was then again done just before starting the procedure. C-arm AP view was then taken. C-arm was positioned in a way that L5 was centralized and superior endplate of L5 and was parallel to the beam. Spinous process was centered between the pedicles. Midline was marked with skin marker and lateral borders of the pedicles were also marked. Skin marker was also utilized to nakul transversely across the middle of the pedicles at L5. 2 vertical incisions about 1 inch Extending below this line were taken about 1/2 inch lateral to the lateral pedicle line. The fascia was also incised vertically approximately the same length. Finger dissection was utilized to palpate the superior articular process and facet joint of L5-S1 on the right side. Sequential tubes were docked on the L5-S1 facet joint and 70 mm length and 18 mm diameter tubular retractor was then placed and was attached to the arm attached to the OR table. Muscle tissue was removed with pituitaries and hemostasis was achieved with Bovie. Right inferior articular process of L5 and superior articular process of S1 were exposed with Bovie. Bone scalpel and osteotome was utilized to remove a portion of the inferior articular process to expose the articular surface of S1. Some of this resected bone was used as autograft. Bone scalpel and Kerrison rongeurs was then utilized to remove the rest of the inferior articular process and part of the lamina of L5. Superior articular process of S1 was resected with the help of a bone scalpel such that the cut was flush with the superior border of S1 pedicle. The traversing nerve root was identified and carefully retracted to expose the disc. Hemostasis was achieved with bipolar cautery. Annulotomy was done with knife. Blunt spreaders were utilized to enter the disc space under C-arm visualization. Pituitary was used to remove disc material. Curettes of various sizes and angulations were utilized to remove as much of the disc material as possible. End plates were curetted to remove all cartilage. Angled curettes were used to remove disc material from the other side underneath the central annulus. Appointedduy X-PAC trials were inserted into position and checked under C- arm lateral view. The disc space was then filled with autologous morselized local graft from lamina and facet bone along with cancellous bone chips mixed with DBX which were then impacted with the trials. An 12 x 28 mm lordotic tall X-PAC cage filled with bone graft was then inserted into the disc space under x-ray control. Care was taken to make sure the cage was inserted deeper to the posterior longitudinal ligament. The expandable cage was then expanded to up to approximately 12 mm anterior height with approximately 15 degrees lordosis. The cage was found to be well fixed and not easily removable. AP and lateral views showed good positioning of the cage. Depuy Viper Prime screw tower was docked onto the transverse processes at L5. This was then slowly moved medially to reach the superior articular process of L5. This was then confirmed on C-arm and then a mallet was utilized to drive the trocar and screw into the pedicle going up to the medial wall of the pedicle on AP view. This was performed both sides. C-arm lateral view confirmed both trocars to be inside vertebral body. The screws were advanced. Similar procedure was done at S1 both sides. Cannulated pedicle screws (Depuy Viper) sizes were 7 x 45 mm bilaterally at L5 and S1 levels bilaterally. The lateral view showed good positioning of the screws and cage. 40 mm precontoured titanium 5.5 mm lordotic misty on both sides was then passed through the screw extensions and reduced down to the screws with the help of Depuy Viper Prime instrumentation system. AP and lateral views of the C-arm showed good positioning of the screws and cage. Final tightening with the torque screwdriver was then completed. [place] was utilized to decorticate the left L5-S1 facet joint and bone graft was placed over this. Hemostasis was achieved with the help of Bovie and FloSeal. Closure was done in layers with 0 Vicryls for the fascia, 2-0 Vicryls for the subcutaneous tissue, and Monocryl for the skin. Dressings were applied covered with Tegaderm. The patient was then turned supine onto a hospital bed. The patient was extubated and taken to PACU in stable condition. The patient tolerated the procedure well and no complications occurred. [email or web address] X-PAC cage & Viper Prime minimally invasive pedicle screw instrumentation system was utilized in this case. No dural tear was identified in this case. Multimodal neuro monitoring was utilized. All potentials stayed at baseline throughout the procedure. I was present for the entirety of the case and performed the surgery myself. Hand Tool Lapper Judie Sibley PA-C. My physician ophthalmology assistant was a vital part of this case. They were important in appropriate retraction during the case, and protection of soft tissues during the procedure. Their intimate knowledge of the case and my steps aided in safe and expedient completion of the procedure as well as appropriate position of the patient during the surgery. They were also vital in assisting with closure under my direct supervision. Surgical Findings: See operative note Complications Complications: No
--- NOTE | 2024-06-20 10:54 | PCM.POST.ANE ---
Anesthesia: Postop Eval I Current Vital Signs Temperature: 97 F Pulse Rate: 70 Blood Pressure: 128/61 Respiratory Rate: 16 Pulse Ox: 100 Oxygen Delivery Method: Simple Mask Oxygen Flow Rate (L/min): 6 Assessment Airway patent: Yes Spontaneous unlabored respirations: Yes nausea: No Vomiting: Yes Anesthesia Complication: No Fluid Hydration Crystalloid volume administer (ml): 1,400 Total IV fluid infused: 1,400 Progress Note Anesthesia document: Postop Eval 1 completed: Yes
[2024-06-20 12:56] LABS: Bedside Glucose 168 mg/dL (74-106)
[2024-06-20] MEDS: Gabapentin 300 MG Capsule PO ×2 (13:39→21:15)
[2024-06-20] MEDS: oxyCODONE 5 MG Tablet PO (13:40)
--- NOTE | 2024-06-20 13:53 | POSTOPAN2_ITS ---
Anesthesia Postop Eval I Sum Postop Eval Completion status Anesthesia document: Postop Eval 1 completed: Yes Anesthesia Postop Eval I Summary Anesthesia Postop Eval I Summary: Anesthesia Postop Eval I: Assessment Summary Airway patent Yes 06/20/24 10:55 AIR CARGO SPECIALIST.JUAN LUISOBGricelda Spontaneous unlabored Yes 06/20/24 10:55 AIR CARGO SPECIALISTDAVE respirations Mental status nausea No 06/20/24 10:55 AIR CARGO SPECIALIST.[place] Vomiting Yes 06/20/24 10:55 AIR CARGO SPECIALISTDAVE Anesthesia Postop Eval I: Fluid Summary Crystalloid volume administer 1,400 06/20/24 10:55 AIR CARGO SPECIALIST.JUAN LUISOBGricelda (ml) Colloids volume administered ( ml) Blood Product volume administered (ml) Total IV fluid infused 1,400 06/20/24 10:55 AIR CARGO SPECIALISTDAVE Anesthesia Postop Eval I: Summary Notes Anesthesia Complication No 06/20/24 10:55 BIPIN Anesthesia Complication Comment: Post-operative progress note Anesthesia: Postop Eval II Evaluation Mental status: Awake Pain Level: 3 nausea: No Vomiting: No
--- NOTE | 2024-06-20 13:53 | PCM.POSTANE2 ---
Anesthesia Postop Eval I Sum Postop Eval Completion status Anesthesia document: Postop Eval 1 completed: Yes Anesthesia Postop Eval I Summary Anesthesia Postop Eval I Summary: Anesthesia Postop Eval I: Assessment Summary Airway patent Yes 06/20/24 10:55 COTTAGE PARENT.JUAN LUISOBGricelda Spontaneous unlabored Yes 06/20/24 10:55 COTTAGE PARENTDAVE respirations Mental status nausea No 06/20/24 10:55 COTTAGE PARENT.[place] Vomiting Yes 06/20/24 10:55 COTTAGE PARENTDAVE Anesthesia Postop Eval I: Fluid Summary Crystalloid volume administer 1,400 06/20/24 10:55 COTTAGE PARENT.JUAN LUISOBGricelda (ml) Colloids volume administered ( ml) Blood Product volume administered (ml) Total IV fluid infused 1,400 06/20/24 10:55 COTTAGE PARENTDAVE Anesthesia Postop Eval I: Summary Notes Anesthesia Complication No 06/20/24 10:55 BIPIN Anesthesia Complication Comment: Post-operative progress note Anesthesia: Postop Eval II Evaluation Mental status: Awake Pain Level: 3 nausea: No Vomiting: No
[2024-06-20] MEDS: Ketorolac 15 MG/ML Vial IV (15:39)
[2024-06-20] MEDS: Morphine 4 MG/ML Syringe IV ×3 (17:12→23:35)
[2024-06-20] MEDS: Methocarbamol 500 MG Tablet 1000 MG PO ×2 (17:13→21:17)
[2024-06-20] MEDS: Senna/Docusate Sodium 1 Tablet 2 TABLET PO (21:16)
[2024-06-20] MEDS: RisperiDONE 0.5 MG Tablet PO (21:16)
[2024-06-20] MEDS: Prazosin HCl 1 MG Capsule 2 MG PO (21:17)
[2024-06-20] MEDS: DULoxetine Hcl 60 MG Capsule PO (21:18)
--- NOTE | 2024-06-20 21:32 | PN.HOSP_ITS ---
Reason for Visit Reason for Visit: Diagnoses Encounter for other preprocedural examination (06/20/24) Subjective Subjective 48y/o F with a history of hypertension, anxiety, hypothyroidism, GERD, diabetes, chronic back pain presented to [facility] 06/20/2024 for elective lumbar fusion. Hospitalist contacted for postop medical management. She reports she is feeling sore but is about to receive medication, denies any other new or acute complaints, no medical complaints including nausea, chest pain, shortness of breath Objective Data Objective Data Vital Signs: Vital Signs Temp Pulse Resp BP Pulse Ox O2 Del Method O2 Flow Rate 98.3 F 72 16 111/66 98 Room Air 4 06/20/24 21:05 06/20/24 21:05 06/20/24 21:05 06/20/24 21:05 06/20/24 21:05 06/20/24 21:05 06/20/24 12:15 Oxygen Flow Rate (L/min) 4 Oxygen Delivery Method Room Air Weight: 95.254 kg Body Mass Index (BMI) 31.9 Intake & Output: Intake and Output for Last 24 Hours 06/18/24 06/19/24 06/20/24 23:59 23:59 23:59 Intake Total 2274 / 2274 Output Total 140 / 140 Balance 2134 / 2134 Lab / Micro Data 06/07/24 06:54 06/07/24 06:54 Labs: Laboratory Results - last 24 hr 06/20/24 05:53: POC Glucose 328 H 06/20/24 10:15: POC Glucose 132 H 06/20/24 12:29: POC Glucose 168 H Micro: Microbiology 06/07/24 06:54 Swab (Method) Nasal Screen MRSA/MSSA - Final Radiography Diagnostic Testing: Radiology Impression Lumbar Spine X-Ray 06/20/24 08:05 IMPRESSION: Fluoroscopic guidance used intraoperatively. Please refer to operative note for further details. Reading Location: [facility] Physical Exam Narrative General: Alert, oriented, no apparent distress HEENT: Atraumatic, normocephalic Eyes: extraocular movements grossly intact Neck: Supple Respiratory: normal respiratory effort Cardiovascular: no edema appreciated GI: nondistended Extremities: Moving all extremities Neuro: No overt focal neurological deficits Psych: Cooperative Assessment & Plan Assessment/Plan (1) DDD (degenerative disc disease), lumbar: PLAN: Plan #Type 2 diabetes mellitus -Glucose checks and sliding scale insulin -Hold home oral hypoglycemics #Hypertension -Hold home lisinopril for now until assessing how pain medication will affect patient's blood pressure #Depression/anxiety -Continue home medications #Hypothyroidism -Continue Synthroid #GERD -Continue PPI #Chronic pain -Status post surgery below -Follows outpatient with Dr. Franco for pain management and is on a buprenorphine patch, hydrocodone, and gabapentin # L5-S1 disc degeneration, stenosis with neurogenic claudication, radiculopathy -Status post L5-S1 transforaminal lumbar interbody fusion with Dr. Joyner -PT/OT -Management per primary #DVT ppx: Timing at the discretion of primary team Katlyn Croft MD Time spent in the patient's overall evaluation, decision-making process, review of diagnostic data, adjustment of management, discussion with other providers, nursing and ancillary staff involved in patient's care documentation, 25 Minutes Charges/Coding Visit Charges Office Visits / Consults: 40755 OV L3 Est 20min
[2024-06-21] MEDS: Morphine 4 MG/ML Syringe IV (03:10)
[2024-06-21 03:14] VITALS: BP 127/74; PULSE 66; RESP 16; TEMP 37.1; O2SAT 96
[2024-06-21] MEDS: DiphenhydrAMINE 50 MG/ML Syringe 25 MG IV (04:00)
--- NOTE | 2024-06-21 05:00 | RAD_ITS ---
EXAM: Lumbar spine 2 or three views x-ray CLINICAL HISTORY: Status post lumbar fusion TECHNIQUE: AP and lateral views of the lumbosacral spine FINDINGS: 5 [id number] lumbar vertebral type bodies. No fracture or malalignment. Status post L5-S1 posterior fusion and intervertebral disc spacer appears intact. L3-4 and L4-5 spondylosis/discogenic change. RAD/Lumbar Spine 2 or 3 Views IMPRESSION: No fracture or malalignment. Status post L5-S1 posterior fusion and interverteb ral disc spacer appears intact. Reading Location: [id number]
[2024-06-21] MEDS: Acetaminophen 500 MG Tablet 1000 MG PO (05:54)
[2024-06-21] MEDS: Gabapentin 300 MG Capsule PO (05:54)
[2024-06-21] MEDS: Levothyroxine 50 MCG Tablet PO (05:54)
[2024-06-21] MEDS: Insulin Lispro 100 UNIT/ML INSULN.PEN SC ×2 (06:00→11:35)
[2024-06-21 06:16] LABS: Bedside Glucose 273 mg/dL (74-106)
[2024-06-21 06:49] LABS: Hematocrit 29.9 % (37-47); Hemoglobin 9.9 g/dL (12.0-15.0); Mean Corp Hgb Conc 33.1 g/dL (32-36); Mean Corpuscular Volume 81.5 fL (81-99); Mean Platelet Vol. 10.3 fl (6.2-12.0); Platelet Count 289 K/mm3 (150-450); RBC Distribution Width CV 13.1 % (11.6-14.6); RBC Distribution Width SD 38.8 fl (35.1-43.9); Red Blood Count 3.67 M/mm3 (4.2-5.4); White Blood Count 11.7 K/mm3 (4.4-11.0)
--- NOTE | 2024-06-21 07:08 | PCM.PN.HOSP ---
Reason for Visit Reason for Visit: Diagnoses Other intervertebral disc degeneration, lumbar region (06/20/24) Encounter for other preprocedural examination (06/20/24) Subjective Subjective Feeling well. No new complaints. Objective Data Objective Data Vital Signs: Vital Signs Temp Pulse Resp BP Pulse Ox O2 Del Method O2 Flow Rate 37.1 C 66 16 127/74 H 96 Room Air 4 06/21/24 03:14 06/21/24 03:14 06/21/24 03:14 06/21/24 03:14 06/21/24 03:14 06/21/24 03:14 06/20/24 12:15 Oxygen Flow Rate (L/min) 4 Oxygen Delivery Method Room Air Weight: 95.254 kg Body Mass Index (BMI) 31.9 Intake & Output: Intake and Output for Last 24 Hours 06/19/24 06/20/24 06/21/24 23:59 23:59 23:59 Intake Total 2274 / 2274 1050 / 1050 Output Total 140 / 140 Balance 2134 / 2134 1050 / 1050 Lab / Micro Data 06/21/24 06:06 06/21/24 06:06 Labs: Laboratory Results - last 24 hr 06/20/24 10:15: POC Glucose 132 H 06/20/24 12:29: POC Glucose 168 H 06/21/24 05:57: POC Glucose 273 H 06/21/24 06:06: WBC 11.7 H, RBC 3.67 L, Hgb 9.9 L, Hct 29.9 L, MCV 81.5, MCH 27.0, MCHC 33.1, RDW Std Deviation 38.8, RDW Coeff of Jamilah 13.1, Plt Count 289, MPV 10.3 Micro: Microbiology 06/07/24 06:54 Swab (Method) Nasal Screen MRSA/MSSA - Final Radiography Diagnostic Testing: Radiology Impression Lumbar Spine X-Ray 06/20/24 08:05 IMPRESSION: Fluoroscopic guidance used intraoperatively. Please refer to operative note for further details. Reading Location: [facility] Lumbar Spine X-Ray 06/21/24 05:00 IMPRESSION: No fracture or malalignment. Status post L5-S1 posterior fusion and intervertebral disc spacer appears intact. Reading Location: [facility] Physical Exam Const alert and no apparent distress HEENT head/scalp atraumatic and moist oral mucous membranes Resp normal respiratory effort and no retractions Assessment & Plan Assessment/Plan (1) Diabetes: PLAN: Uncontrolled. Resume metformin and glimepiride. Continue SSI. Calorie controlled diet (2) Hypertension: PLAN: Stable. Continue lisinopril. PLAN: Plan Medically stable for discharge. Charges/Coding Visit Charges Inpatient E&M: 52787 Subs Hosp L1
[2024-06-21 07:12] LABS: Anion Gap 13 (5-15); BUN 10 mg/dL (4-19); BUN/Creat Ratio 12.4 RATIO (10-20); Calcium,Total 8.8 mg/dL (7.6-11.0); Carbon Dioxide 21.1 mmol/L (21.0-32.0); Chloride 92 mmol/L (98-108); Creatinine, Serum 0.81 mg/dL (0.70-1.20); EST Glomerular Filtration Rate 89 (>60); Estimated Creatinine Clearance 101.38 ml/min (50-250); Glucose 299 mg/dL (70-99); Potassium 4.3 mmol/L (3.3-5.1); Sodium Level 126 mmol/L (133-145)
[2024-06-21 07:40] VITALS: BP 101/51; PULSE 70; RESP 18; TEMP 36.2; O2SAT 97
[2024-06-21] MEDS: Meloxicam 15 MG Tablet PO (07:48)
[2024-06-21] MEDS: Glimepiride 1 MG Tablet 3 MG PO (07:48)
[2024-06-21] MEDS: metFORMIN HCl 1,000 MG Tablet 1000 MG PO (07:48)
[2024-06-21] MEDS: DULoxetine Hcl 60 MG Capsule PO (07:48)
[2024-06-21] MEDS: Methocarbamol 500 MG Tablet 1000 MG PO (07:48)
[2024-06-21] MEDS: Pantoprazole Sodium 40 MG Tablet PO (07:48)
[2024-06-21] MEDS: Atorvastatin Calcium 10 MG Tablet PO (07:48)
[2024-06-21] MEDS: RisperiDONE 0.5 MG Tablet PO (07:48)
[2024-06-21] MEDS: Senna/Docusate Sodium 1 Tablet 2 TABLET PO (07:48)
[2024-06-21] MEDS: oxyCODONE 5 MG Tablet PO ×2 (07:53→11:41)
--- NOTE | 2024-06-21 09:03 | PCM.PN.ORT ---
Subjective Subjective Patient is postop day 1 L5-S1 TLIF. She is doing relatively well postoperatively with her pain well managed. Patient says that she has been up to the bathroom over the night however she has not yet walked in the halls. She has walked with therapy who has cleared her for a home discharge. She has been up with xrays. Says that most of her pain is located over her low back. Patient denies any nausea or vomiting. Seen with Dr. Joyner. Objective Data Objective Data Vital Signs: Vital Signs Temp Pulse Resp BP Pulse Ox O2 Del Method O2 Flow Rate 97.2 F L 70 18 101/51 L 97 Room Air 4 06/21/24 07:40 06/21/24 07:40 06/21/24 07:40 06/21/24 07:40 06/21/24 07:40 06/21/24 07:40 06/20/24 12:15 Oxygen Flow Rate (L/min) 4 Oxygen Delivery Method Room Air Weight: 210 lb Body Mass Index (BMI) 31.9 Intake & Output: Intake and Output for Last 24 Hours 06/19/24 06/20/24 06/21/24 23:59 23:59 23:59 Intake Total 2274 / 2274 1050 / 1050 Output Total 140 / 140 Balance 2134 / 2134 1050 / 1050 Lab / Micro Data 06/21/24 06:06 06/21/24 06:06 Labs: Laboratory Results - last 24 hr 06/20/24 10:15: POC Glucose 132 H 06/20/24 12:29: POC Glucose 168 H 06/21/24 05:57: POC Glucose 273 H 06/21/24 06:06: WBC 11.7 H, RBC 3.67 L, Hgb 9.9 L, Hct 29.9 L, MCV 81.5, MCH 27.0, MCHC 33.1, RDW Std Deviation 38.8, RDW Coeff of Jamilah 13.1, Plt Count 289, MPV 10.3, Sodium 126 L, Potassium 4.3, Chloride 92 L, Carbon Dioxide 21.1, Anion Gap 13, BUN 10, Creatinine 0.81, Estim Creat Clear Calc 101.38, Est GFR (MDRD) Non-Af 89, BUN/Creatinine Ratio 12.4, Glucose 299 H, Calcium 8.8 Micro: Microbiology 06/07/24 06:54 Swab (Method) Nasal Screen MRSA/MSSA - Final Radiography Diagnostic Testing: Radiology Impression Lumbar Spine X-Ray 06/20/24 08:05 IMPRESSION: Fluoroscopic guidance used intraoperatively. Please refer to operative note for further details. Reading Location: [facility] Lumbar Spine X-Ray 06/21/24 05:00 IMPRESSION: No fracture or malalignment. Status post L5-S1 posterior fusion and intervertebral disc spacer appears intact. Reading Location: [facility] Physical Exam Narrative Neurological exam of the lower extremity shows 5X5 power. Normal sensation across all dermatomes. Physical examination of the back shows Tegaderm and gauze x 2 CDI. No dressing changes were required. Const alert, oriented x3 and no apparent distress Assessment & Plan Assessment/Plan (1) Status post lumbar spinal fusion: PLAN: Plan Patient is postop day 1 L5-S1 TLIF. X-rays done today look good. PT/OT cleared for home discharge. Patient is ready for home discharge today. Home-going medications include oxycodone, acetaminophen, meloxicam, methocarbamol, senna. OARRS reviewed. Reviewed restrictions of no bending, lifting, twisting. She will follow-up in the clinic in 2 weeks. Patient is in agreement.
[2024-06-21 09:55] VITALS: O2SAT 97
[2024-06-21 11:35] VITALS: BP 117/73; PULSE 69; RESP 18; TEMP 36.1; O2SAT 98
[2024-06-21 11:54] LABS: Bedside Glucose 224 mg/dL (74-106)
--- NOTE | 2024-06-21 12:28 | CASEMGMT ---
ALLIE AZAR Assessment Face to Face with patient for initial transition planning/care coordination assessment. ALLIE AZAR introduced self and role at [facility], pt voices understanding. Pt is A&Ox4 and is resting comfortably in the chair and is calm. Pt at bedside. Care providers, pharmacy, and demographics verified. RALFE Strata: 1 PCP: Allen Spears Specialists: Ar (Ortho), Salvador (PM), Madonna (Podiatry) Preferred Pharmacy: [facility] Insurance: ANTH Prescription Benefit: Yes LNOK: Richard (H) Living Arrangements: Pt lives with her and son in a 2 story home with 2 steps to enter with bilateral handrails and a stair lift inside. However, the stair lift's battery is currently broken. Pt states that she can reside on the main level. ADLs/IADLs: Ind at baseline, requiring little assistance now. Transportation: Self, . Denies needs DME: [facility] with sufficient supplies. Walk-in shower. FWW. Cane. W/C. Grab bars. HHC/SNF: Denies Hx or needs Pt?s goal: Home Plan: Home no needs. Pt was cleared by PT and OT. Pt denies the acute need for OP PT or HHC. Pt states that she already has an OP appt established with ortho. Pt states that she feels safe returning home with her family once she is medically ready and denies further questions or concerns at this time. Report given to MS3 ALLIE AZAR. Carli Alexis RN, CM
--- NOTE | 2024-06-21 14:21 | PHA.DC.MR.R ---
Pharmacy PR Med Reconciliation Pharmacy Service has performed discharge medication reconciliation for this patient. Medication education papers prepared, patient discharged when counseling was attempted. Medications reviewed. The patient's discharge medication list was reviewed for discrepancies and discrepancies were resolved. Medications at Discharge Home Medications atorvastatin 10 mg tablet 1 tablet PO DAILY 01/28/21 buprenorphine 10 mcg/hour weekly transdermal patch 1 patch transdermal QWEEK 01/28/21 cholecalciferol (vitamin D3) 125 mcg (5,000 unit) capsule 125 mcg PO DAILY 01/28/21 gabapentin 300 mg capsule 300 mg PO TID 01/28/21 lisinopril 20 mg tablet 10 mg PO DAILY 01/28/21 metformin 1,000 mg tablet 1,000 mg PO BID 01/28/21 pantoprazole 40 mg tablet,delayed release 40 tab PO DAILY 10/03/21 hydroxyzine pamoate 50 mg capsule 50 mg PO Q6H PRN anxiety 11/28/22 levothyroxine 75 mcg tablet 50 mcg PO DAILY 11/28/22 risperidone 0.5 mg tablet 0.5 mg PO BID 11/28/22 duloxetine 60 mg capsule,delayed release 60 mg PO BID 06/06/24 glimepiride 1 mg tablet 3 mg PO DAILY 06/06/24 prazosin 2 mg capsule 2 mg PO QHS 06/06/24 propranolol 60 mg capsule,24 hr,extended release 60 mg PO DAILY 06/06/24 tirzepatide 5 mg/0.5 mL subcutaneous pen injector (Mounjaro) 5 mg subcut .IM 06/06/24 acetaminophen 500 mg tablet 500 mg PO Q6H #30 tabs 06/21/24 meloxicam 15 mg tablet 15 mg PO DAILY #30 tabs 06/21/24 methocarbamol 500 mg tablet 750 mg (1.5 x 500 mg) PO TID PRN pain/spasms #60 tabs 06/21/24 oxycodone 5 mg tablet 2.5 - 5 mg (0.5 - 1 x 5 mg) PO Q6H PRN pain 7 days #28 tabs 06/21/24 sennosides 8.6 mg-docusate sodium 50 mg tablet (Stimulant Laxative Plus) 2 tab PO BID PRN constipation #30 tabs 06/21/24
== END 2024-06-21 13:57 | disposition home or self-care (01) ==
LOC: SDC 11:39 → MS3 06-21 06:47
PROVIDERS: Anesthesiology; Student in an Organized Health Care Education/Training Program; Admitting Provider Orthopaedic Surgery Orthopaedic Surgery of the Spine; PCP Family Medicine; Referring Provider Orthopaedic Surgery Orthopaedic Surgery of the Spine; Visit Provider Orthopaedic Surgery Orthopaedic Surgery of the Spine
PROC: (CPT 22633; principal; 2024-06-20 07:00)
DX: M51.17 Intervertebral disc disorders with radiculopathy, lumbosacral region (principal); E11.9 Type 2 diabetes mellitus without complications; M51.362 Other intervertebral disc degeneration, lumbar region with discogenic back pain and lower extremity pain; E03.9 Hypothyroidism, unspecified; I10 Essential (primary) hypertension; K21.9 Gastro-esophageal reflux disease without esophagitis; M48.062 Spinal stenosis, lumbar region with neurogenic claudication; M41.9 Scoliosis, unspecified; M48.07 Spinal stenosis, lumbosacral region; F17.210 Nicotine dependence, cigarettes, uncomplicated; F41.9 Anxiety disorder, unspecified; Z79.84 Long term (current) use of oral hypoglycemic drugs; Z79.891 Long term (current) use of opiate analgesic; Z79.890 Hormone replacement therapy; Z79.899 Other long term (current) drug therapy; Z79.85 Long-term (current) use of injectable non-insulin antidiabetic drugs; G89.29 Other chronic pain
CPT/HCPCS: 22633; 22840; 22853; 20936; 20930; 00670; 36415; 72100; 76000; 80048; 80076; 82962; 83036; 83735; 84443; 85025; 85027; 85610; 85730; 86703; 86706; 86708; 86803; 86850; 86900; 86901; 87077; 87081; 93005; 94668; 96365; 96366; 96375; 96376; 97161; 97166; 99221; C1713; G0378; J2405

== ENCOUNTER → 2024-08-01 | Outpatient (CLI) | payer BC, SELFPAY | END | disposition home or self-care (01) | LOC: LAB 09:39 | PROVIDERS: PCP Family Medicine; Referring Provider Anesthesiology Pain Medicine; Visit Provider Anesthesiology Pain Medicine | DX: F11.20 Opioid dependence, uncomplicated (principal) ==